=== PATIENT | female | born 1985 | race Caucasian/White ===

== ENCOUNTER 2016-11-30 20:24 | Emergency (ER) | payer SELFPAY ==
[2016-11-30 20:26] VITALS: BP 123/83; PULSE 112; RESP 18; TEMP 97.7; O2SAT 98
== END 2016-11-30 21:18 | disposition left against medical advice (07) ==
LOC: NED 20:24
DX: K92.9 Disease of digestive system, unspecified (principal)
CPT/HCPCS: 99281